=== PATIENT | female | born 1970 | race Two or more races ===

== ENCOUNTER 2018-10-22 03:02 | Emergency (ER) | payer BC, OTHER ==
[~2018-10-22] VITALS: Ht 157.5 cm; Wt 95.3 kg
[2018-10-22 03:12] VITALS: BP 146/88
== END 2018-10-22 09:45 | disposition left against medical advice (07) ==
LOC: ER 03:02 → EDBD 03:02 → ER 09:45
DX: F41.9 Anxiety disorder, unspecified (principal); Z53.21 Procedure and treatment not carried out due to patient leaving prior to being seen by health care provider

== ENCOUNTER 2023-05-16 00:45 | Emergency (ER) | payer MEDICAID, OTHER ==
[~2023-05-16] VITALS: Ht 157.5 cm; Wt 80.4 kg
[2023-05-16 00:52] VITALS: BP 120/57; RESP 16; O2SAT 95
[2023-05-16 00:55] VITALS: PULSE 71
[2023-05-16 01:47] LABS: Alanine Aminotransferase 15 U/L (7-40); Alkaline Phosphatase 111 U/L (46-116); Anion Gap 7 (5-15); Aspartate Aminotransferase 13 U/L (13-40); BUN/Creatinine Ratio 14.3 (10.0-20.0); Blood Urea Nitrogen 11 mg/dL (9-23); Calcium 9.2 mg/dL (8.7-10.4); Carbon Dioxide 24 mmol/L (20-30); Chloride 110 mmol/L (98-107); Glucose 110 mg/dL (74-106); Magnesium 2.1 mg/dL (1.6-2.6); Potassium 3.8 mmol/L (3.5-5.1); Sodium 141 mmol/L (136-145)
[2023-05-16 01:48] LABS: Bilirubin, Total 0.4 mg/dL (0.2-1.0); Total Protein 6.8 g/dL (5.7-8.2)
[2023-05-16 02:18] LABS: Basophils # (auto) 0.1 10 ^3/uL (0-0.2); Basophils % (auto) 0.6 % (0.0-2.0); Eosinophils # (auto) 0.1 10 ^3/uL (0-0.8); Eosinophils % (auto) 1.5 % (0.0-7.0); Hematocrit 45.9 % (36.0-46.0); Lymphocytes # (auto) 3.5 10 ^3/uL (0.4-5.4); Lymphocytes % (auto) 38.9 % (10.0-50.0); Mean Corpuscular Hemoglobin 32.3 pg (28.0-32.0); Mean Corpuscular Hgb Conc. 34.8 g/dL (32.0-36.0); Mean Corpuscular Volume 92.7 fL (80.0-100.0); Monocytes # (auto) 0.7 10 ^3/uL (0-1.3); Monocytes % (auto) 7.4 % (0.0-12.0); Neutrophils # (auto) 4.6 10 ^3/uL (1.6-8.6); Neutrophils % (auto) 51.6 % (37.0-80.0); Nucleated Red Blood Cells % 0.2 %; Red Blood Cells 4.95 10^6/uL (4.0-5.20); Red Cell Distribution Width 13.4 % (11.8-14.3)
[2023-05-16] MEDS ORDERED: IBU600T PO (04:50)
[2023-05-16] MEDS ORDERED: HYDR25CA PO (04:50)
== END 2023-05-16 04:58 | disposition home or self-care (01) ==
LOC: ER 00:45
DX: F41.0 Panic disorder [episodic paroxysmal anxiety] (principal); R07.89 Other chest pain; I10 Essential (primary) hypertension; I25.2 Old myocardial infarction; R51.9 Headache, unspecified
CPT/HCPCS: 36415; 70450; 71045; 80053; 83735; 84484; 85025; 93005